=== PATIENT | male | born 1970 | race Caucasian/White ===

== ENCOUNTER 2018-03-23 20:16 | Emergency (ER) ==
[2018-03-23 20:34] VITALS: TEMP 97.4; BMI 29.5
--- NOTE | 2018-03-23 20:51 | ED.PDOC ---
General ED Provider: Dr. NADIA SANCHEZ Chief Complaint: Hypertension Stated Complaint: Patient is a 47year old male who is a chronic heavy smoker who staes that today he felt some dizziness and some pressure in his head. He is prepareing to go on a boat for one month and was anxious about it. He then took B/P at home using wrist B/P machine and got 164/119. He now feels better, but still has the pressure in head but denies any headache. Has not been on B/P med before. Time Seen by Physician: 20:44 Mode of Arrival: Walk-In Information Source: Patient Exam Limitations: No limitations Primary Care Provider: MIGUEL GRAY Nursing and Triage Documentation Reviewed and Agree: Yes Reviewed sepsis parameters & appropriate labs ordered?: No System Inflammatory Response Syndrome: Not Applicable Sepsis Protocol: For patient's 13 years and over: Temp is 96.8 and below OR 101 and greater Pulse >90 BPM Resp >20/minute Acutely Altered Mental Status Are patient's symptoms suggestive of a new infection, such as: -Pneumonia -Skin, Soft Tissue -Endocarditis -UTI -Bone, Joint Infection -Implantable Device -Acute Abdominal Infection -Wound Infection -Meningitis -Blood Stream Catheter Infection -Unknown Review of Systems - Review Of Systems Constitutional: Reports: No symptoms Eyes: Reports: No symptoms Ears, Nose, Mouth, Throat: Reports: No symptoms Respiratory: Reports: No symptoms Cardiac: Reports: Lightheadedness. Denies: Chest pain : Reports: No symptoms Musculoskeletal: Reports: No symptoms Skin: Reports: No symptoms Neurological: Reports: Anxiety, Headache (mild pressure) All Other Systems: Reviewed and Negative Past Medical History - Past Medical History Endocrine: Reports: Hypothyroid Cardiovascular: Reports: None Respiratory: Reports: None Hematological: Reports: None Gastrointestinal: Reports: GERD Genitourinary: Reports: None Neuro/Psych: Reports: None Musculoskeletal: Reports: None Cancer: Reports: None - Surgical History General Surgical History: Reports: Appendectomy, Other (2 polyps removed from vocal cords 2016 and mass removed from left side of neck) - Family History Family History: Reports: Hypertension, Diabetes, Lung (COPD ) - Social History Smoking Status: Current every day smoker, Heavy tobacco smoker (1.5 ppd ) Hx Substance Use: No Alcohol Screening: None - Immunizations Tetanus Shot up to Date: Yes Physical Exam - Physical Exam Appearance: Well-appearing, No pain distress, Well-nourished Eyes: VAISHALI, EOMI, Conjunctiva clear ENT: Ears normal, Nose normal, Oropharynx normal Respiratory: Airway patent, Breath sounds clear, Breath sounds equal, Respirations nonlabored Cardiovascular: RRR, Pulses normal, No rub, No murmur GI/: Soft, Nontender, No masses, Bowel sounds normal, No Organomegaly Musculoskeletal: Normal strength, ROM intact, No edema, No calf tenderness Skin: Warm, Dry, Normal color Neurological: Sensation intact, Motor intact, Reflexes intact, Cranial nerves intact, Alert, Oriented Psychiatric: Anxious Critical Care Note - Critical Care Note Total Time (mins): 0 Comments: counseling provided for 15 min regarding blood pressure check. Course - Course Vital Signs: Temp Pulse Resp BP Pulse Ox 03/23/18 21:20 67 20 127/78 97 03/23/18 20:17 97.4 F L 66 20 155/88 H 98 Departure - Departure Time of Disposition: 21:07 Disposition: HOME SELF-CARE Discharge Problem: Elevated blood pressure reading without diagnosis of hypertension Instructions: How to Stop Smoking (ED), Heart Healthy Diet (ED), Hypertension ( ED) Condition: Stable Pt referred to PMD for follow-up: Yes IPMP verified?: No Additional Instructions: Follow up with your PCP for blood pressure checks Use a large cuff to check your blood pressure. bring log to the Clinic on your next visit. If you start having chest pain or severe headache go to the closest ER for evaluation Work on smoking cessation, ask your Doctor for assistance. Try to stay calm and not worry too much as this may elevate your blood pressure. Allergies/Adverse Reactions: Allergies No Known Allergies Allergy (Unverified 03/23/18 20:27) Home Medications: Ambulatory Orders Levothyroxine Sodium 75 mcg PO DAILY 03/23/18 Pantoprazole Sodium [Protonix] 40 mg PO DAILY 03/23/18 Pregabalin [Lyrica] 300 mg PO DAILY 03/23/18 Disposition Discussed With: Patient, Family
[2018-03-23 21:22] VITALS: BP 127/78
== END 2018-03-23 21:24 | disposition home or self-care (01) ==
LOC: ED 20:16
DX: R03.0 Elevated blood-pressure reading, without diagnosis of hypertension (principal); R42 Dizziness and giddiness; F17.210 Nicotine dependence, cigarettes, uncomplicated
CPT/HCPCS: 99281